=== PATIENT | female | born 1960 | race African-American/Black ===

== ENCOUNTER 2017-04-08 07:41 | Inpatient (IN) | payer OTHER ==
[2017-04-08] MEDS ORDERED: ACETAMINOPHEN 325 MG TAB PO (10:30)
[2017-04-08] MEDS ORDERED: NITROGLYCERIN (SL) 0.4 MG TAB SL (10:30)
[2017-04-08] MEDS: ASPIRIN 81 MG TAB PO (10:30)
[2017-04-08] MEDS: DOCUSATE SODIUM 100 MG CAP PO ×2 (10:30→23:24)
[2017-04-08] MEDS ORDERED: NON-FORMULARY/PATIENT OWN MED (Sitagliptin* (Januvia*) 100 MG) PO (10:30)
[2017-04-08] MEDS ORDERED: GLUCOSE GEL 15 GRAM TUBE PO ×2 (11:00)
[2017-04-08] MEDS ORDERED: GLUCOSE GEL 15 GRAM TUBE BUCCAL (11:00)
[2017-04-08] MEDS ORDERED: GLUCAGON 1 MG INJ IM (11:00)
[2017-04-08] MEDS ORDERED: DEXTROSE 50% 50 ML SYRINGE IV ×2 (11:00)
[2017-04-08 11:32] LABS: CREATINE KINASE 84 IU/L (23-200)
[2017-04-08 11:50] LABS: CK INDEX 1.2; CK-MB 1.03 ng/ml (0.0-2.4)
[2017-04-08] MEDS: HYDROCODONE/APAP (5/325) TAB PO (11:55)
[2017-04-08] MEDS: ISOSORBIDE MONONITRATE(SR)60 MG TAB PO (11:57)
[2017-04-08] MEDS: PANTOPRAZOLE (EC) 40 MG TAB PO (11:58)
[2017-04-08] MEDS: FLUOXETINE 20 MG CAP PO (11:59)
[2017-04-08] MEDS: NIFEdipine (XL) 60 MG TAB PO (11:59)
[2017-04-08] MEDS: LISINOPRIL 20 MG TAB PO (12:00)
[2017-04-08] MEDS: DONEPEZIL 10 MG TAB PO (12:00)
[2017-04-08 12:15] LABS: TROPONIN-I < 0.012 ng/ml (0.00-0.12)
[2017-04-08] MEDS: GABAPENTIN 400 MG CAP PO ×2 (12:34→20:48)
[2017-04-08] MEDS: NAPROXEN 500 MG TAB PO ×2 (12:34→20:48)
[2017-04-08] MEDS: INSULIN ASPART [NOVOLOG] 3 ML PEN SC ×3 (12:42→20:55)
[2017-04-08] MEDS ORDERED: HYDROCODONE/APAP (10/325) TAB PO (14:00)
[2017-04-08] MEDS: HYDROmorphONE 0.5 MG/0.5 ML SYG IV (14:39)
[2017-04-08] MEDS: ONDANSETRON 4 MG INJ IV (14:45)
[2017-04-08] MEDS: HYDROmorphONE 4 MG TAB PO ×2 (16:28→20:48)
[2017-04-08 16:51] LABS: CREATINE KINASE 79 IU/L (23-200)
[2017-04-08 17:04] LABS: CK INDEX 1.3; CK-MB 0.99 ng/ml (0.0-2.4); TROPONIN-I < 0.012 ng/ml (0.00-0.12)
[2017-04-08] MEDS: metFORMIN 500 MG TAB PO (17:48)
[2017-04-08] MEDS: ATORVASTATIN 20 MG TAB PO (20:49)
[2017-04-08] MEDS: CYCLOBENZAPRINE 10 MG TAB PO (20:49)
[2017-04-08 21:22] LABS: ADD MAN DIFF? NO
[2017-04-08 21:24] LABS: BASOPHILS % 0.4 % (0.0-2.0); EOSINOPHILS # 0.2 10^3/ul (0.0-0.5); EOSINOPHILS % 3.3 % (0.0-7.0); HEMATOCRIT 34.4 % (37.0-47.0); HEMOGLOBIN 10.7 g/dl (12.0-16.0); LYMPHOCYTES # 1.4 10^3/ul (0.8-2.9); LYMPHOCYTES % 27.9 % (15.0-51.0); MEAN CORPUSCULAR HEMOGLOBIN 25.6 pg (29.0-33.0); MEAN CORPUSCULAR HGB CONC 31.1 g/dl (32.0-37.0); MEAN CORPUSCULAR VOLUME 82.3 fl (82.0-101.0); MEAN PLATELET VOLUME 10.4 fl (7.4-10.4); MONOCYTE # 0.7 10^3/ul (0.3-0.9); MONOCYTES % 13.5 % (0.0-11.0); NEUTROPHIL # 2.7 10^3/ul (1.6-7.5); NEUTROPHILS % 54.7 % (39.0-77.0); PLATELET COUNT 276 10^3/UL (140-415); RED BLOOD COUNT 4.18 10^6/ul (4.20-5.40); RED CELL DISTRIBUTION WIDTH 14.6 % (11.5-14.5)
[2017-04-08 21:24] LABS: WHITE BLOOD COUNT 4.9 10^3/ul (4.8-10.8)
[2017-04-08] MEDS: RIVAROXABAN 20 MG TABLET PO (22:00)
[2017-04-09] MEDS: ACCU-CHEK XX (01:37)
[2017-04-09] MEDS: HYDROmorphONE 4 MG TAB PO ×4 (02:46→21:12)
[2017-04-09] MEDS: LORAZEPAM 1 MG TAB PO (02:46)
[2017-04-09] MEDS: metFORMIN 500 MG TAB PO ×2 (07:55→17:58)
[2017-04-09] MEDS: INSULIN ASPART [NOVOLOG] 3 ML PEN SC ×4 (08:13→21:35)
[2017-04-09 08:15] LABS: ADD MAN DIFF? NO
[2017-04-09 08:24] LABS: BASOPHILS % 0.5 % (0.0-2.0); EOSINOPHILS # 0.2 10^3/ul (0.0-0.5); EOSINOPHILS % 3.7 % (0.0-7.0); HEMATOCRIT 34.6 % (37.0-47.0); LYMPHOCYTES # 1.5 10^3/ul (0.8-2.9); LYMPHOCYTES % 27.1 % (15.0-51.0); MEAN CORPUSCULAR HEMOGLOBIN 25.6 pg (29.0-33.0); MEAN CORPUSCULAR HGB CONC 31.8 g/dl (32.0-37.0); MEAN CORPUSCULAR VOLUME 80.7 fl (82.0-101.0); MEAN PLATELET VOLUME 11.1 fl (7.4-10.4); MONOCYTE # 0.5 10^3/ul (0.3-0.9); MONOCYTES % 9.3 % (0.0-11.0); NEUTROPHIL # 3.3 10^3/ul (1.6-7.5); NEUTROPHILS % 59.4 % (39.0-77.0); PLATELET COUNT 298 10^3/UL (140-415); RED BLOOD COUNT 4.29 10^6/ul (4.20-5.40); RED CELL DISTRIBUTION WIDTH 14.7 % (11.5-14.5)
[2017-04-09 08:24] LABS: WHITE BLOOD COUNT 5.6 10^3/ul (4.8-10.8)
[2017-04-09 08:37] LABS: HEMOGLOBIN A1C 9.4 % (0-5.9)
[2017-04-09 08:42] LABS: ANION GAP 12 (8-16); BLOOD UREA NITROGEN 13 mg/dl (7-20); CALCIUM 10.2 mg/dl (8.4-10.2); CARBON DIOXIDE 29 mmol/L (21-31); CHLORIDE 102 mmol/L (97-110); CREATININE 0.72 mg/dl (0.44-1.00); GLUCOSE 143 mg/dl (70-220); POTASSIUM 4.9 mmol/L (3.5-5.1); SODIUM 138 mmol/L (135-144)
[2017-04-09] MEDS: ASPIRIN 81 MG TAB PO (08:43)
[2017-04-09] MEDS: PANTOPRAZOLE (EC) 40 MG TAB PO (08:43)
[2017-04-09] MEDS: GABAPENTIN 400 MG CAP PO ×3 (08:44→21:12)
[2017-04-09] MEDS: LINAGLIPTIN 5 MG TABLET PO (08:45)
[2017-04-09] MEDS: CYCLOBENZAPRINE 10 MG TAB PO ×2 (08:45→21:12)
[2017-04-09] MEDS: LISINOPRIL 20 MG TAB PO (08:46)
[2017-04-09] MEDS: NIFEdipine (XL) 60 MG TAB PO (08:47)
[2017-04-09] MEDS: DONEPEZIL 10 MG TAB PO (08:47)
[2017-04-09] MEDS: FLUOXETINE 20 MG CAP PO (08:48)
[2017-04-09] MEDS: ISOSORBIDE MONONITRATE(SR)60 MG TAB PO (08:48)
[2017-04-09 08:51] LABS: ALANINE AMINOTRANSFERASE 31 IU/L (13-69); ALKALINE PHOSPHATASE 104 IU/L (42-121); ASPARTATE AMINO TRANSFERASE 29 IU/L (15-46); BILIRUBIN,INDIRECT 0.1 mg/dl (0-1.1); BILIRUBIN,TOTAL 0.1 mg/dl (0.2-1.3); CHOL/HDL RATIO 2.5 RATIO; CHOLESTEROL 129 mg/dl (100-200); HDL CHOLESTEROL 51 mg/dl (37-92); LDL CHOLESTEROL,CALCULATED 49 mg/dl; MAGNESIUM 1.6 mg/dl (1.7-2.5); TOTAL PROTEIN 7.5 g/dl (6.1-8.1); TRIGLYCERIDES 147 mg/dl (0-149)
[2017-04-09] MEDS: NAPROXEN 500 MG TAB PO ×2 (09:00→21:13)
[2017-04-09] MEDS: DOCUSATE SODIUM 100 MG CAP PO ×2 (12:54→22:30)
[2017-04-09] MEDS ORDERED: FINASTERIDE 5 MG TAB NGT (17:00)
[2017-04-09] MEDS: RIVAROXABAN 20 MG TABLET PO (17:33)
[2017-04-09 19:45] LABS: TROPONIN-I < 0.012 ng/ml (0.00-0.12)
[2017-04-09] MEDS: ATORVASTATIN 20 MG TAB PO (21:13)
[2017-04-10 01:43] LABS: TROPONIN-I < 0.012 ng/ml (0.00-0.12)
[2017-04-10] MEDS: ACCU-CHEK XX (01:49)
[2017-04-10] MEDS: LORAZEPAM 1 MG TAB PO ×2 (01:56→11:02)
[2017-04-10] MEDS: HYDROmorphONE 4 MG TAB PO ×6 (01:56→22:40)
[2017-04-10] MEDS: CYCLOBENZAPRINE 10 MG TAB PO ×2 (06:14→14:13)
[2017-04-10] MEDS: metFORMIN 500 MG TAB PO ×2 (07:40→17:40)
[2017-04-10] MEDS: INSULIN ASPART [NOVOLOG] 3 ML PEN SC ×4 (07:45→21:00)
[2017-04-10] MEDS: GABAPENTIN 400 MG CAP PO ×3 (09:00→21:21)
[2017-04-10] MEDS: ASPIRIN 81 MG TAB PO ×2 (09:00→09:02)
[2017-04-10] MEDS: LINAGLIPTIN 5 MG TABLET PO (09:01)
[2017-04-10] MEDS: ISOSORBIDE MONONITRATE(SR)60 MG TAB PO (09:01)
[2017-04-10] MEDS: PANTOPRAZOLE (EC) 40 MG TAB PO (09:01)
[2017-04-10] MEDS: FLUOXETINE 20 MG CAP PO (09:01)
[2017-04-10] MEDS: NIFEdipine (XL) 60 MG TAB PO (09:02)
[2017-04-10] MEDS: DONEPEZIL 10 MG TAB PO (09:02)
[2017-04-10] MEDS: LISINOPRIL 20 MG TAB PO (09:02)
[2017-04-10] MEDS: NAPROXEN 500 MG TAB PO ×2 (09:10→21:20)
[2017-04-10 09:16] LABS: ADD MAN DIFF? NO
[2017-04-10 09:17] LABS: BASOPHILS % 0.9 % (0.0-2.0); EOSINOPHILS # 0.2 10^3/ul (0.0-0.5); EOSINOPHILS % 3.3 % (0.0-7.0); HEMATOCRIT 36.2 % (37.0-47.0); HEMOGLOBIN 11.3 g/dl (12.0-16.0); LYMPHOCYTES # 1.3 10^3/ul (0.8-2.9); LYMPHOCYTES % 28.5 % (15.0-51.0); MEAN CORPUSCULAR HEMOGLOBIN 25.3 pg (29.0-33.0); MEAN CORPUSCULAR HGB CONC 31.2 g/dl (32.0-37.0); MEAN CORPUSCULAR VOLUME 81.2 fl (82.0-101.0); MEAN PLATELET VOLUME 11.1 fl (7.4-10.4); MONOCYTE # 0.4 10^3/ul (0.3-0.9); MONOCYTES % 9.7 % (0.0-11.0); NEUTROPHIL # 2.6 10^3/ul (1.6-7.5); NEUTROPHILS % 57.2 % (39.0-77.0); PLATELET COUNT 284 10^3/UL (140-415); RED BLOOD COUNT 4.46 10^6/ul (4.20-5.40); RED CELL DISTRIBUTION WIDTH 15.1 % (11.5-14.5)
[2017-04-10 09:17] LABS: WHITE BLOOD COUNT 4.5 10^3/ul (4.8-10.8)
[2017-04-10 09:37] LABS: ANION GAP 17 (8-16); BLOOD UREA NITROGEN 12 mg/dl (7-20); CALCIUM 9.7 mg/dl (8.4-10.2); CARBON DIOXIDE 29 mmol/L (21-31); CHLORIDE 101 mmol/L (97-110); CREATININE 0.73 mg/dl (0.44-1.00); GLUCOSE 154 mg/dl (70-220); POTASSIUM 4.2 mmol/L (3.5-5.1); SODIUM 143 mmol/L (135-144)
[2017-04-10] MEDS: DOCUSATE SODIUM 100 MG CAP PO ×2 (10:01→22:30)
[2017-04-10] MEDS: RIVAROXABAN 20 MG TABLET PO (17:40)
[2017-04-10] MEDS: ATORVASTATIN 20 MG TAB PO (22:41)
[2017-04-11] MEDS: CYCLOBENZAPRINE 10 MG TAB PO ×2 (00:36→13:53)
[2017-04-11] MEDS: ACCU-CHEK XX (02:00)
[2017-04-11] MEDS: HYDROmorphONE 4 MG TAB PO (04:14)
[2017-04-11] MEDS: LORAZEPAM 1 MG TAB PO (05:27)
[2017-04-11 05:54] LABS: ADD MAN DIFF? NO
[2017-04-11 05:56] LABS: BASOPHILS % 0.4 % (0.0-2.0); EOSINOPHILS # 0.2 10^3/ul (0.0-0.5); EOSINOPHILS % 3.3 % (0.0-7.0); HEMATOCRIT 33.4 % (37.0-47.0); HEMOGLOBIN 10.3 g/dl (12.0-16.0); LYMPHOCYTES # 1.5 10^3/ul (0.8-2.9); LYMPHOCYTES % 27.3 % (15.0-51.0); MEAN CORPUSCULAR HEMOGLOBIN 24.9 pg (29.0-33.0); MEAN CORPUSCULAR HGB CONC 30.8 g/dl (32.0-37.0); MEAN CORPUSCULAR VOLUME 80.9 fl (82.0-101.0); MEAN PLATELET VOLUME 11.1 fl (7.4-10.4); MONOCYTE # 0.6 10^3/ul (0.3-0.9); NEUTROPHIL # 3.2 10^3/ul (1.6-7.5); NEUTROPHILS % 58.8 % (39.0-77.0); PLATELET COUNT 262 10^3/UL (140-415); RED BLOOD COUNT 4.13 10^6/ul (4.20-5.40); RED CELL DISTRIBUTION WIDTH 14.6 % (11.5-14.5)
[2017-04-11 05:56] LABS: WHITE BLOOD COUNT 5.5 10^3/ul (4.8-10.8)
[2017-04-11 08:05] LABS: ANION GAP 18 (8-16); BLOOD UREA NITROGEN 12 mg/dl (7-20); CARBON DIOXIDE 29 mmol/L (21-31); CHLORIDE 99 mmol/L (97-110); CREATININE 0.74 mg/dl (0.44-1.00); GLUCOSE 170 mg/dl (70-220); POTASSIUM 4.2 mmol/L (3.5-5.1); SODIUM 142 mmol/L (135-144)
[2017-04-11 08:18] LABS: ADD UMIC NO; UR ASCORBIC ACID NEGATIVE (NEGATIVE); UR BILIRUBIN (Dip) NEGATIVE (NEGATIVE); UR BLOOD (Dip) NEGATIVE (NEGATIVE); UR CLARITY CLEAR (CLEAR); UR COLOR STRAW (YELLOW); UR GLUCOSE (Dip) NEGATIVE (NEGATIVE); UR KETONES (Dip) NEGATIVE (NEGATIVE); UR LEUKOCYTE ESTERASE (Dip) NEGATIVE Leu/ul (NEGATIVE); UR NITRITE (Dip) NEGATIVE (NEGATIVE); UR SPECIFIC GRAVITY (Dip) 1.004 (1.003-1.030); UR TOTAL PROTEIN (Dip) NEGATIVE (NEGATIVE); UR UROBILINOGEN (Dip) NEGATIVE (NEGATIVE)
[2017-04-11] MEDS: ASPIRIN 81 MG TAB PO (08:25)
[2017-04-11] MEDS: ISOSORBIDE MONONITRATE(SR)60 MG TAB PO (08:25)
[2017-04-11] MEDS: LISINOPRIL 20 MG TAB PO (08:25)
[2017-04-11] MEDS: DONEPEZIL 10 MG TAB PO (08:25)
[2017-04-11] MEDS: LINAGLIPTIN 5 MG TABLET PO (08:25)
[2017-04-11] MEDS: FLUOXETINE 20 MG CAP PO (08:25)
[2017-04-11] MEDS: PANTOPRAZOLE (EC) 40 MG TAB PO (08:25)
[2017-04-11] MEDS: NIFEdipine (XL) 60 MG TAB PO (08:25)
[2017-04-11] MEDS: metFORMIN 500 MG TAB PO ×2 (08:26→17:04)
[2017-04-11] MEDS: GABAPENTIN 400 MG CAP PO ×2 (08:26→12:10)
[2017-04-11] MEDS: NAPROXEN 500 MG TAB PO (08:36)
[2017-04-11] MEDS: HYDROmorphONE 2 MG TAB PO ×2 (08:45→13:47)
[2017-04-11] MEDS: INSULIN ASPART [NOVOLOG] 3 ML PEN SC ×3 (08:48→17:14)
[2017-04-11] MEDS: DOCUSATE SODIUM 100 MG CAP PO (09:33)
[2017-04-11] MEDS: RIVAROXABAN 20 MG TABLET PO (17:04)
== END 2017-04-11 18:55 | disposition home or self-care (01) | DRG 194 ==
LOC: TEL 07:41 → MS2 04-10 22:47
DX: R09.1 Pleurisy (principal); Z68.43 Body mass index [BMI] 50.0-59.9, adult; I10 Essential (primary) hypertension; F32.9 Major depressive disorder, single episode, unspecified; E11.9 Type 2 diabetes mellitus without complications; D64.9 Anemia, unspecified; E66.01 Morbid (severe) obesity due to excess calories; I48.0 Paroxysmal atrial fibrillation; E78.5 Hyperlipidemia, unspecified; F99 Mental disorder, not otherwise specified; G89.29 Other chronic pain; K21.9 Gastro-esophageal reflux disease without esophagitis; M25.461 Effusion, right knee; M25.462 Effusion, left knee; R07.89 Other chest pain; Z96.652 Presence of left artificial knee joint; Z91.81 History of falling; Z86.718 Personal history of other venous thrombosis and embolism; Z87.891 Personal history of nicotine dependence; Z79.01 Long term (current) use of anticoagulants; Z79.84 Long term (current) use of oral hypoglycemic drugs; Z79.82 Long term (current) use of aspirin; Z79.891 Long term (current) use of opiate analgesic
CPT/HCPCS: 71110; 73700; 80048; 80061; 80076; 81003; 82550; 82553; 82962; 83036; 83735; 84443; 84484; 85025; 93005; 93306; 97163

== ENCOUNTER 2017-05-13 17:46 | Emergency (ER) | payer OTHER ==
[2017-05-14] MEDS: HYDROCODONE/APAP (10/325) TAB PO (00:27)
[2017-05-14] MEDS: CARISOPRODOL 350 MG TAB PO (00:49)
== END 2017-05-14 10:53 | disposition home or self-care (01) ==
LOC: E/R 05-14 10:53
DX: R53.1 Weakness (principal); J44.9 Chronic obstructive pulmonary disease, unspecified; I10 Essential (primary) hypertension; J45.909 Unspecified asthma, uncomplicated; E11.9 Type 2 diabetes mellitus without complications; Z79.82 Long term (current) use of aspirin; Z79.84 Long term (current) use of oral hypoglycemic drugs
CPT/HCPCS: 99283; Z7502

== ENCOUNTER 2017-05-29 02:15 | Emergency (ER) | payer OTHER ==
[2017-05-29] MEDS: HYDROCODONE/APAP (5/325) TAB PO (09:21)
== END 2017-05-29 09:39 | disposition home or self-care (01) ==
LOC: FTE 09:39
DX: R51 Headache (principal); I10 Essential (primary) hypertension; J45.909 Unspecified asthma, uncomplicated; E11.9 Type 2 diabetes mellitus without complications; Z79.01 Long term (current) use of anticoagulants; Z79.82 Long term (current) use of aspirin; Z79.84 Long term (current) use of oral hypoglycemic drugs; Z96.652 Presence of left artificial knee joint
CPT/HCPCS: 70450; 93005; 99284-25

== ENCOUNTER 2017-06-17 22:32 | Emergency (ER) | payer OTHER ==
[2017-06-18] MEDS: traMADol 50 MG TAB PO (01:56)
[2017-06-18] MEDS: KETOROLAC 60 MG INJ IM (01:57)
== END 2017-06-18 02:26 | disposition home or self-care (01) ==
LOC: FTE 22:32
DX: N63.20 Unspecified lump in the left breast, unspecified quadrant (principal); G89.4 Chronic pain syndrome; I10 Essential (primary) hypertension; J44.9 Chronic obstructive pulmonary disease, unspecified; E11.9 Type 2 diabetes mellitus without complications; Z79.82 Long term (current) use of aspirin; Z79.84 Long term (current) use of oral hypoglycemic drugs; Z96.652 Presence of left artificial knee joint
CPT/HCPCS: 93005; 96372; 99284-25

== ENCOUNTER 2017-07-02 18:32 | Emergency (ER) | payer OTHER ==
[2017-07-02] MEDS: HYDROCODONE/APAP (10/325) TAB PO (20:33)
== END 2017-07-02 22:15 | disposition home or self-care (01) ==
LOC: FTE 18:32
DX: M25.551 Pain in right hip (principal); M25.562 Pain in left knee; I10 Essential (primary) hypertension; J44.9 Chronic obstructive pulmonary disease, unspecified; Z76.5 Malingerer [conscious simulation]; Z79.01 Long term (current) use of anticoagulants; Z79.82 Long term (current) use of aspirin; Z79.84 Long term (current) use of oral hypoglycemic drugs; Z96.652 Presence of left artificial knee joint
CPT/HCPCS: 73510; 73562-50; 99284-25

== ENCOUNTER 2017-07-19 15:57 | Emergency (ER) | payer OTHER | END 2017-07-19 16:27 | disposition home or self-care (01) | LOC: FTE 15:57 → E/R 16:27 | DX: L29.9 Pruritus, unspecified (principal); I10 Essential (primary) hypertension; J44.9 Chronic obstructive pulmonary disease, unspecified; E11.9 Type 2 diabetes mellitus without complications; Z79.82 Long term (current) use of aspirin; Z79.84 Long term (current) use of oral hypoglycemic drugs; Z96.652 Presence of left artificial knee joint | CPT/HCPCS: 99283; Z7502 ==

== ENCOUNTER 2017-08-07 17:32 | Emergency (ER) | payer OTHER ==
[2017-08-07] MEDS: HYDROCODONE/APAP (10/325) TAB PO (19:27)
[2017-08-07] MEDS: KETOROLAC 60 MG INJ IM (19:27)
== END 2017-08-07 21:25 | disposition home or self-care (01) ==
LOC: FTE 17:32
DX: S90.31XA Contusion of right foot, initial encounter (principal); J44.0 Chronic obstructive pulmonary disease with (acute) lower respiratory infection; I10 Essential (primary) hypertension; W22.8XXA Striking against or struck by other objects, initial encounter; Y92.481 Parking lot as the place of occurrence of the external cause; Z79.82 Long term (current) use of aspirin; Z79.84 Long term (current) use of oral hypoglycemic drugs; Z96.652 Presence of left artificial knee joint
CPT/HCPCS: 73630; 96372; 99284-25

== ENCOUNTER 2017-08-14 20:00 | Emergency (ER) | payer OTHER ==
[2017-08-14] MEDS: KETOROLAC 30 MG INJ IM (21:29)
[2017-08-14 21:41] LABS: ADD MAN DIFF? NO
[2017-08-14 21:42] LABS: BASOPHILS % 0.4 % (0.0-2.0); EOSINOPHILS # 0.2 10^3/ul (0.0-0.5); EOSINOPHILS % 3.4 % (0.0-7.0); HEMOGLOBIN 11.7 g/dl (12.0-16.0); LYMPHOCYTES # 1.6 10^3/ul (0.8-2.9); LYMPHOCYTES % 22.1 % (15.0-51.0); MEAN CORPUSCULAR HEMOGLOBIN 25.1 pg (29.0-33.0); MEAN CORPUSCULAR HGB CONC 30.8 g/dl (32.0-37.0); MEAN CORPUSCULAR VOLUME 81.4 fl (82.0-101.0); MEAN PLATELET VOLUME 11.5 fl (7.4-10.4); MONOCYTE # 0.8 10^3/ul (0.3-0.9); NEUTROPHIL # 4.5 10^3/ul (1.6-7.5); PLATELET COUNT 242 10^3/UL (140-415); RED BLOOD COUNT 4.67 10^6/ul (4.20-5.40); RED CELL DISTRIBUTION WIDTH 18.1 % (11.5-14.5)
[2017-08-14 21:42] LABS: WHITE BLOOD COUNT 7.1 10^3/ul (4.8-10.8)
[2017-08-14 22:02] LABS: ALANINE AMINOTRANSFERASE 27 IU/L (13-69); ALBUMIN 4.3 g/dl (3.3-4.9); ALBUMIN/GLOBULIN RATIO 1.13; ALKALINE PHOSPHATASE 132 IU/L (42-121); ANION GAP 16 (8-16); ASPARTATE AMINO TRANSFERASE 26 IU/L (15-46); BILIRUBIN,INDIRECT 0.2 mg/dl (0-1.1); BILIRUBIN,TOTAL 0.2 mg/dl (0.2-1.3); BLOOD UREA NITROGEN 13 mg/dl (7-20); CALCIUM 9.9 mg/dl (8.4-10.2); CARBON DIOXIDE 29 mmol/L (21-31); CHLORIDE 100 mmol/L (97-110); CREATININE 0.81 mg/dl (0.44-1.00); GLUCOSE 103 mg/dl (70-220); POTASSIUM 4.2 mmol/L (3.5-5.1); SODIUM 141 mmol/L (135-144); TOTAL PROTEIN 8.1 g/dl (6.1-8.1)
[2017-08-14 22:15] LABS: TROPONIN-I < 0.012 ng/ml (0.000-0.120)
== END 2017-08-14 22:20 | disposition left against medical advice (07) ==
LOC: FTE 20:00
DX: M25.512 Pain in left shoulder (principal); M25.562 Pain in left knee; R07.89 Other chest pain; I10 Essential (primary) hypertension; E11.9 Type 2 diabetes mellitus without complications; I50.9 Heart failure, unspecified; E66.9 Obesity, unspecified; J44.9 Chronic obstructive pulmonary disease, unspecified; Z68.41 Body mass index [BMI] 40.0-44.9, adult; Z79.82 Long term (current) use of aspirin; Z79.84 Long term (current) use of oral hypoglycemic drugs; Z96.652 Presence of left artificial knee joint; Z87.891 Personal history of nicotine dependence
CPT/HCPCS: 80053; 84484; 85025; 93005; 99284-25

== ENCOUNTER 2017-09-05 20:57 | Emergency (ER) | payer OTHER ==
[2017-09-05] MEDS: HYDROCODONE/APAP (10/325) TAB PO (23:21)
[2017-09-05] MEDS: DIPHTH/TET/ACEL PERTUSS (ADULT) 0.5 ML VIAL IM* (23:24)
[2017-09-05] MEDS: KETOROLAC 30 MG INJ IM (23:32)
== END 2017-09-05 23:53 | disposition home or self-care (01) ==
LOC: FTE 23:53
DX: M25.561 Pain in right knee (principal); I10 Essential (primary) hypertension; J44.9 Chronic obstructive pulmonary disease, unspecified; F17.210 Nicotine dependence, cigarettes, uncomplicated; Z76.0 Encounter for issue of repeat prescription; Z23 Encounter for immunization; Z96.652 Presence of left artificial knee joint; Z79.82 Long term (current) use of aspirin; Z79.01 Long term (current) use of anticoagulants; Z79.84 Long term (current) use of oral hypoglycemic drugs
CPT/HCPCS: 90471; 90715; 96372; 99284-25

== ENCOUNTER 2017-10-27 10:07 | Emergency (ER) | payer OTHER ==
[2017-10-27] MEDS: FAMOTIDINE 20 MG TAB PO (11:44)
[2017-10-27] MEDS: LORATADINE 10 MG TAB PO (11:44)
== END 2017-10-27 12:00 | disposition home or self-care (01) ==
LOC: E/R 10:07
DX: L29.9 Pruritus, unspecified (principal); I10 Essential (primary) hypertension; J44.9 Chronic obstructive pulmonary disease, unspecified; E11.9 Type 2 diabetes mellitus without complications; Z79.82 Long term (current) use of aspirin; Z79.84 Long term (current) use of oral hypoglycemic drugs; Z96.652 Presence of left artificial knee joint
CPT/HCPCS: 99282; Z7502

== ENCOUNTER 2017-12-12 20:45 | Observation (INO) | payer OTHER ==
[2017-12-12 21:58] LABS: ADD MAN DIFF? NO
[2017-12-12 22:02] LABS: WHITE BLOOD COUNT 5.7 10^3/ul (4.8-10.8)
[2017-12-12 22:02] LABS: BASOPHILS % 0.5 % (0.0-2.0); EOSINOPHILS # 0.1 10^3/ul (0.0-0.5); EOSINOPHILS % 2.4 % (0.0-7.0); HEMATOCRIT 35.3 % (37.0-47.0); HEMOGLOBIN 11.3 g/dl (12.0-16.0); LYMPHOCYTES # 1.3 10^3/ul (0.8-2.9); LYMPHOCYTES % 22.9 % (15.0-51.0); MEAN CORPUSCULAR VOLUME 81.3 fl (82.0-101.0); MEAN PLATELET VOLUME 12.1 fl (7.4-10.4); MONOCYTE # 0.5 10^3/ul (0.3-0.9); MONOCYTES % 9.2 % (0.0-11.0); NEUTROPHIL # 3.7 10^3/ul (1.6-7.5); NEUTROPHILS % 64.8 % (39.0-77.0); PLATELET COUNT 211 10^3/UL (140-415); RED BLOOD COUNT 4.34 10^6/ul (4.20-5.40); RED CELL DISTRIBUTION WIDTH 16.2 % (11.5-14.5)
[2017-12-12] MEDS: ONDANSETRON 4 MG INJ IV (22:18)
[2017-12-12] MEDS: morphine 4 MG/ML VIAL IV (22:18)
[2017-12-12 22:20] LABS: ALANINE AMINOTRANSFERASE 24 IU/L (13-69); ALBUMIN 3.3 g/dl (3.3-4.9); ALBUMIN/GLOBULIN RATIO 0.89; ALKALINE PHOSPHATASE 132 IU/L (42-121); ANION GAP 9 (5-13); ASPARTATE AMINO TRANSFERASE 29 IU/L (15-46); BILIRUBIN,INDIRECT 0.2 mg/dl (0-1.1); BILIRUBIN,TOTAL 0.2 mg/dl (0.2-1.3); BLOOD UREA NITROGEN 15 mg/dl (7-20); CALCIUM 10.1 mg/dl (8.4-10.2); CARBON DIOXIDE 27 mmol/L (21-31); CHLORIDE 101 mmol/L (97-110); CREATININE 0.75 mg/dl (0.44-1.00); Estimated GFR > 60 mL/min (>60); GLUCOSE 248 mg/dl (70-220); LIPASE 34 U/L (23-300); POTASSIUM 4.9 mmol/L (3.5-5.1); SODIUM 137 mmol/L (135-144)
[2017-12-12 22:31] LABS: TROPONIN-I < 0.012 ng/ml (0.000-0.120)
[2017-12-12 23:16] LABS: ADD UMIC NO; UR ASCORBIC ACID NEGATIVE (NEGATIVE); UR BILIRUBIN (Dip) NEGATIVE (NEGATIVE); UR BLOOD (Dip) NEGATIVE (NEGATIVE); UR CLARITY CLEAR (CLEAR); UR COLOR STRAW (YELLOW); UR GLUCOSE (Dip) NEGATIVE (NEGATIVE); UR KETONES (Dip) NEGATIVE (NEGATIVE); UR LEUKOCYTE ESTERASE (Dip) NEGATIVE Leu/ul (NEGATIVE); UR NITRITE (Dip) NEGATIVE (NEGATIVE); UR SPECIFIC GRAVITY (Dip) 1.008 (1.003-1.030); UR TOTAL PROTEIN (Dip) NEGATIVE (NEGATIVE); UR UROBILINOGEN (Dip) NEGATIVE (NEGATIVE)
[2017-12-13] MEDS ORDERED: HYDROCODONE/APAP (5/325) TAB PO (03:32)
[2017-12-13] MEDS: HYDROCODONE/APAP (5/325) TAB PO ×2 (03:47→18:19)
[2017-12-13] MEDS: morphine 4 MG/ML VIAL IV (04:06)
[2017-12-13] MEDS: INSULIN ASPART [NOVOLOG] 3 ML PEN SC ×9 (04:48→20:42)
[2017-12-13] MEDS ORDERED: ACETAMINOPHEN 325 MG TAB PO (05:00)
[2017-12-13] MEDS ORDERED: NITROGLYCERIN (SL) 0.4 MG TAB SL (05:00)
[2017-12-13] MEDS ORDERED: ONDANSETRON 4 MG INJ IV (05:00)
[2017-12-13] MEDS ORDERED: ALBUTEROL/IPRATROPIUM (NEB) 3 ML AMP HHN (05:00)
[2017-12-13] MEDS ORDERED: NACL 0.9% 3 ML SYG IV (05:00)
[2017-12-13 06:41] LABS: ADD MAN DIFF? NO
[2017-12-13 06:48] LABS: WHITE BLOOD COUNT 5.2 10^3/ul (4.8-10.8)
[2017-12-13 06:48] LABS: BASOPHILS % 0.4 % (0.0-2.0); EOSINOPHILS # 0.1 10^3/ul (0.0-0.5); EOSINOPHILS % 2.1 % (0.0-7.0); HEMATOCRIT 34.5 % (37.0-47.0); HEMOGLOBIN 10.8 g/dl (12.0-16.0); LYMPHOCYTES # 1.3 10^3/ul (0.8-2.9); MEAN CORPUSCULAR HEMOGLOBIN 25.8 pg (29.0-33.0); MEAN CORPUSCULAR HGB CONC 31.3 g/dl (32.0-37.0); MEAN CORPUSCULAR VOLUME 82.5 fl (82.0-101.0); MEAN PLATELET VOLUME 12.3 fl (7.4-10.4); MONOCYTE # 0.4 10^3/ul (0.3-0.9); MONOCYTES % 8.4 % (0.0-11.0); NEUTROPHIL # 3.4 10^3/ul (1.6-7.5); NEUTROPHILS % 63.9 % (39.0-77.0); PLATELET COUNT 189 10^3/UL (140-415); RED BLOOD COUNT 4.18 10^6/ul (4.20-5.40); RED CELL DISTRIBUTION WIDTH 16.8 % (11.5-14.5)
[2017-12-13] MEDS: IBUPROFEN 600 MG TAB PO ×3 (06:51→22:00)
[2017-12-13 07:05] LABS: HEMOGLOBIN A1C 10.8 % (0-5.9)
[2017-12-13 07:23] LABS: ANION GAP 9 (5-13); BLOOD UREA NITROGEN 14 mg/dl (7-20); CALCIUM 9.6 mg/dl (8.4-10.2); CARBON DIOXIDE 27 mmol/L (21-31); CHLORIDE 103 mmol/L (97-110); CREATININE 0.73 mg/dl (0.44-1.00); Estimated GFR > 60 mL/min (>60); GLUCOSE 277 mg/dl (70-220); POTASSIUM 4.2 mmol/L (3.5-5.1); SODIUM 139 mmol/L (135-144)
[2017-12-13 07:24] LABS: CHOLESTEROL 127 mg/dl (100-200)
[2017-12-13 07:24] LABS: CHOL/HDL RATIO 2.5 RATIO; HDL CHOLESTEROL 50 mg/dl (35-98); LDL CHOLESTEROL,CALCULATED 58 mg/dl; TRIGLYCERIDES 97 mg/dl (0-149)
[2017-12-13] MEDS: FLUOXETINE 10 MG CAP PO (08:17)
[2017-12-13] MEDS: INSULIN GLARGINE [LANTus] (100 UNITS/ML) SYG SC (08:37)
[2017-12-13] MEDS: [UNRECOGNIZED DRUG - REMARK] XX ×2 (09:00→20:36)
[2017-12-13] MEDS ORDERED: HYDROmorphONE 2 MG TAB PO ×2 (12:00→18:00)
[2017-12-13] MEDS: HYDROmorphONE 2 MG TAB PO ×2 (12:37→21:15)
[2017-12-14] MEDS: HYDROCODONE/APAP (5/325) TAB PO ×2 (00:08→16:13)
[2017-12-14] MEDS: ACCU-CHEK XX (01:06)
[2017-12-14] MEDS: INSULIN ASPART [NOVOLOG] 3 ML PEN SC ×7 (01:29→17:37)
[2017-12-14] MEDS: HYDROmorphONE 2 MG TAB PO ×2 (04:36→10:29)
[2017-12-14 05:13] LABS: ADD MAN DIFF? NO
[2017-12-14 05:24] LABS: BASOPHILS % 0.4 % (0.0-2.0); EOSINOPHILS # 0.1 10^3/ul (0.0-0.5); EOSINOPHILS % 2.2 % (0.0-7.0); HEMATOCRIT 38.3 % (37.0-47.0); HEMOGLOBIN 12.1 g/dl (12.0-16.0); LYMPHOCYTES # 1.4 10^3/ul (0.8-2.9); LYMPHOCYTES % 28.4 % (15.0-51.0); MEAN CORPUSCULAR HEMOGLOBIN 25.6 pg (29.0-33.0); MEAN CORPUSCULAR HGB CONC 31.6 g/dl (32.0-37.0); MEAN CORPUSCULAR VOLUME 81.1 fl (82.0-101.0); MEAN PLATELET VOLUME 12.4 fl (7.4-10.4); MONOCYTE # 0.4 10^3/ul (0.3-0.9); MONOCYTES % 8.8 % (0.0-11.0); NEUTROPHIL # 2.9 10^3/ul (1.6-7.5); PLATELET COUNT 218 10^3/UL (140-415); RED BLOOD COUNT 4.72 10^6/ul (4.20-5.40); RED CELL DISTRIBUTION WIDTH 16.4 % (11.5-14.5)
[2017-12-14 05:24] LABS: WHITE BLOOD COUNT 4.9 10^3/ul (4.8-10.8)
[2017-12-14] MEDS: IBUPROFEN 600 MG TAB PO ×2 (05:32→13:38)
[2017-12-14 05:39] LABS: ALANINE AMINOTRANSFERASE 25 IU/L (13-69); ALBUMIN/GLOBULIN RATIO 1.08; ALKALINE PHOSPHATASE 140 IU/L (42-121); ANION GAP 8 (5-13); ASPARTATE AMINO TRANSFERASE 21 IU/L (15-46); BILIRUBIN,INDIRECT 0.2 mg/dl (0-1.1); BILIRUBIN,TOTAL 0.2 mg/dl (0.2-1.3); BLOOD UREA NITROGEN 13 mg/dl (7-20); CALCIUM 9.6 mg/dl (8.4-10.2); CARBON DIOXIDE 28 mmol/L (21-31); CHLORIDE 101 mmol/L (97-110); CREATININE 0.69 mg/dl (0.44-1.00); Estimated GFR > 60 mL/min (>60); GLUCOSE 267 mg/dl (70-220); POTASSIUM 4.5 mmol/L (3.5-5.1); SODIUM 137 mmol/L (135-144); TOTAL PROTEIN 7.7 g/dl (6.1-8.1)
[2017-12-14] MEDS: FLUOXETINE 10 MG CAP PO (08:18)
[2017-12-14] MEDS: [UNRECOGNIZED DRUG - REMARK] XX (09:00)
[2017-12-14] MEDS: INSULIN GLARGINE [LANTus] (100 UNITS/ML) SYG SC (10:42)
== END 2017-12-14 20:33 | disposition left against medical advice (07) ==
LOC: TEL 12-13 01:18 → E/R 20:45 → PP2 12-13 13:26
DX: G89.4 Chronic pain syndrome (principal); J45.909 Unspecified asthma, uncomplicated; J44.9 Chronic obstructive pulmonary disease, unspecified; G47.30 Sleep apnea, unspecified; I48.91 Unspecified atrial fibrillation; I10 Essential (primary) hypertension; E11.9 Type 2 diabetes mellitus without complications; F32.9 Major depressive disorder, single episode, unspecified; Z86.718 Personal history of other venous thrombosis and embolism; Z86.711 Personal history of pulmonary embolism
CPT/HCPCS: 36415; 71045; 73510; 73562; 73590; 73630-LT; 80048; 80053; 80061; 81003; 82962; 83036; 83690; 84484; 85025; 93005; 96374; 96375; 97162; 99217; 99285-25; G0378

== ENCOUNTER 2018-01-01 19:37 | Emergency (ER) | payer OTHER ==
[2018-01-01] MEDS: HYDROCODONE/APAP (10/325) TAB PO (20:45)
[2018-01-01] MEDS: KETOROLAC 30 MG INJ IM (20:48)
== END 2018-01-01 23:50 | disposition home or self-care (01) ==
LOC: FTE 19:37
DX: M79.605 Pain in left leg (principal); M79.604 Pain in right leg; J44.9 Chronic obstructive pulmonary disease, unspecified; E11.9 Type 2 diabetes mellitus without complications; J45.909 Unspecified asthma, uncomplicated; I10 Essential (primary) hypertension; E66.9 Obesity, unspecified; Z68.39 Body mass index [BMI] 39.0-39.9, adult; Z96.652 Presence of left artificial knee joint
CPT/HCPCS: 73630; 73630-50; 96372; 99284-25

== ENCOUNTER 2018-01-12 16:07 | Emergency (ER) | payer OTHER ==
[2018-01-12] MEDS: HYDROmorphONE 2 MG/ML SYG IM (20:14)
== END 2018-01-12 22:51 | disposition home or self-care (01) ==
LOC: FTE 16:07
DX: M25.561 Pain in right knee (principal); M25.562 Pain in left knee; J45.909 Unspecified asthma, uncomplicated; E11.9 Type 2 diabetes mellitus without complications; I10 Essential (primary) hypertension; J44.9 Chronic obstructive pulmonary disease, unspecified; Z96.652 Presence of left artificial knee joint
CPT/HCPCS: 73562; 73562-50; 73630-LT; 96372; 99284-25

== ENCOUNTER 2018-06-07 15:56 | Emergency (ER) | payer OTHER | END 2018-06-07 17:22 | disposition left against medical advice (07) | LOC: E/R 15:56 | DX: M54.6 Pain in thoracic spine (principal); I10 Essential (primary) hypertension; E11.9 Type 2 diabetes mellitus without complications; J44.9 Chronic obstructive pulmonary disease, unspecified; E66.9 Obesity, unspecified; Z68.43 Body mass index [BMI] 50.0-59.9, adult; Z96.652 Presence of left artificial knee joint | CPT/HCPCS: 99282; Z7502 ==

== ENCOUNTER → 2018-11-02 | Emergency (ER) | payer OTHER ==
[2018-11-02] MEDS: HYDROCODONE/APAP (10/325) TAB PO (16:37)
[2018-11-02] MEDS: ONDANSETRON (ODT) 4 MG TAB ODT (16:37)
[2018-11-02] MEDS: DIAZEPAM 5 MG TAB PO (18:29)
== END | disposition home or self-care (01) ==
LOC: E/R 15:37
DX: S80.01XA Contusion of right knee, initial encounter (principal); S80.02XA Contusion of left knee, initial encounter; S90.32XA Contusion of left foot, initial encounter; F41.9 Anxiety disorder, unspecified; I10 Essential (primary) hypertension; E11.9 Type 2 diabetes mellitus without complications; J44.9 Chronic obstructive pulmonary disease, unspecified; E66.9 Obesity, unspecified; W18.39XA Other fall on same level, initial encounter; Y92.9 Unspecified place or not applicable; Z68.43 Body mass index [BMI] 50.0-59.9, adult; Z96.652 Presence of left artificial knee joint; Z79.82 Long term (current) use of aspirin; Z79.4 Long term (current) use of insulin
CPT/HCPCS: 29515; 73562; 73610; 73610-RT; 73630; 73630-LT; 99284-25